=== PATIENT | male | born 1980 | race Caucasian/White ===

== ENCOUNTER → 2016-09-20 | Outpatient (CLI) | payer OTHER ==
--- NOTE | 2016-09-20 15:20 | XR ---
EXAMINATION TYPE: XR chest 2V DATE OF EXAM: 09/20/2016 COMPARISON: NONE HISTORY: Preclinical trial. TECHNIQUE: Frontal and lateral views of the chest are obtained. FINDINGS: Exam is slightly suboptimal secondary to patient's large body habitus. There is no focal a ir space opacity, pleural effusion, or pneumothorax seen. The cardiac silhouette size is within norm al limits. The osseous structures are intact. IMPRESSION: No acute cardiopulmonary process.
== END ==
LOC: RADXRMAIN 15:04
PROVIDERS: ATTEND Dermatology MOHS-Micrographic Surgery
DX: R76.11 Nonspecific reaction to tuberculin skin test without active tuberculosis (principal)
CPT/HCPCS: 71020